=== PATIENT | male | born 1995 ===

== ENCOUNTER 2020-08-13 08:08 | Emergency (ER) | payer OTHER ==
[2020-08-13 08:14] VITALS: BP 154/90
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
== END 2020-08-13 10:30 | disposition home or self-care (01) ==
LOC: ED 08:08
DX: S09.90XA Unspecified injury of head, initial encounter (principal); Z79.899 Other long term (current) drug therapy; V49.9XXA Car occupant (driver) (passenger) injured in unspecified traffic accident, initial encounter; Y93.89 Activity, other specified; Y92.488 Other paved roadways as the place of occurrence of the external cause; Y99.8 Other external cause status
CPT/HCPCS: 70450; 99283